=== PATIENT | female | born 1970 | race Caucasian/White ===

== ENCOUNTER 2018-07-16 09:50 | Inpatient (IN) ==
--- NOTE | 2018-07-16 10:11 | Emergency Department Note ---
Disposition Clinical Impression: NSTEMI (non-ST elevated myocardial infarction) Disposition: Admitted As Inpatient Condition: Good General Adult HPI - General Chief complaint: ED Chest Pain Stated complaint: CP Time Seen by Provider: 07/16/18 09:59 Source: EMS Limitations: no limitations - History of Present Illness Pain Scale: 1 - Related Data Home Medications Medication Instructions Recorded Confirmed Aspirin Enteric Coated [Aspirin EC] 81 mg PO DAILY 05/30/15 07/16/18 Carvedilol [Coreg] 6.25 mg PO BID 06/09/16 07/16/18 Rosuvastatin [Crestor] 40 mg PO HS 06/09/16 07/16/18 Cyanocobalamin (Vitamin B-12) 1,000 mcg PO DAILY 11/21/17 07/16/18 [Vitamin B12] Esomeprazole Magnesium [Nexium] 20 mg PO DAILY 11/21/17 07/16/18 Lisinopril [Zestril] 10 mg PO DAILY 11/21/17 07/16/18 Nitroglycerin [Nitrostat] 0.4 mg SL Q5-6MIN PRN 11/21/17 07/16/18 Cholecalciferol (D-3) [Vitamin D] 5,000 unit PO DAILY 07/16/18 07/16/18 Clopidogrel [Plavix] 75 mg PO DAILY 07/16/18 07/16/18 Spironolactone [Aldactone] 25 mg PO DAILY 07/16/18 07/16/18 Previous Rx's Medication Instructions Recorded Furosemide [Lasix] 40 mg PO DAILY #10 tablet 10/19/17 Allergies Allergy/AdvReac Type Severity Reaction Status Date / Time No Known Allergies Allergy Verified 07/16/18 14:53 Past Medical History - Past Medical History Medical history: Reports: cardiomyopathy, GERD, hyperlipidemia, hypertension, myocardial infarction Surgical history: Reports: non-contributory, cholecystectomy Psychiatric history: Reports: no psych history - Social History Smoking Status: Current every day smoker Smokeless Tobacco Status: No Alcohol use: Reports: none Drug use: Reports: none Physical Exam - General Limitations: no limitations General appearance: alert, in no apparent distress Course Vital Signs Temperature 97.7 F 07/16/18 09:52 Pulse Rate 75 07/16/18 09:52 Respiratory Rate 18 07/16/18 09:52 Blood Pressure 153/98 07/16/18 09:52 O2 Sat by Pulse Oximetry 100 07/16/18 09:52 Temperature 97.7 F 07/16/18 09:52 Pulse Rate 79 07/16/18 11:40 Respiratory Rate 18 07/16/18 11:40 Blood Pressure 119/84 07/16/18 11:40 O2 Sat by Pulse Oximetry 100 07/16/18 11:40 Oxygen Delivery Oxygen Delivery Room Air Medical Decision Making - Lab Data Result diagrams: 07/16/18 10:37 Lab Results 07/16/18 07/16/18 Range/Units 10:37 10:37 WBC 8.0 (4.3-11.1) K/mcL RBC 4.79 (3.82-4.97) M/mcL Hgb 13.7 (11.5-15.4) g/dL Hct 41.2 (35.3-44.9) % MCV 86.0 (83.0-100.0) fL MCH 28.6 (28.0-33.3) pg MCHC 33.3 (31.6-35.5) g/dL RDW 13.3 (11.5-14.5) % Plt Count 243 (140-400) K/mcL MPV 11.0 (9.4-12.4) fL PT 11.3 (9.4-12.1) Seconds INR 1.0 Heparin Anti-Xa, Unfract 0.03 L (0.30-0.70) IU/mL Attestation Statement - Attestation Attestation: I examined this patient and my medical decision-making was reviewed with the [employer]/PA/Advanced Practice Nurse/Resident Physician. I agree with the documented findings, disposition and treatment plan as described except to the extent set forth below. I did see the patient upon arrival and also spoke with the EMS and the patient was transported here with elevated troponin and EKG changes. I did review the pre-arrival EKG showing a new lateral T-wave inversion as well as our EKG here showing normal sinus rhythm with rate of 76 and with evidence of lateral T-wave inversion and some minimal ST depression downsloping and the patient does have a 1/10 soreness under the left breast at this time but otherwise does not have any diaphoresis or dyspnea and is bright and alert and well in appearance. We will coordinate care with cardiology and the patient will be admitted. 1010 I did speak the patient just before transportation and did explain her test results and the plan and she is comfortable with the disposition approach for admission and cardiology consultation. Her is in the room also [id number]
[2018-07-16] MEDS ORDERED: *HR* Heparin 5,000 UNIT/ML VIAL IVP ONE (10:18)
[2018-07-16] MEDS ORDERED: *HR* Heparin 5,000 UNIT/ML VIAL IVP PRN ×2 (10:18)
--- NOTE | 2018-07-16 10:28 | Emergency Department Note ---
Disposition Clinical Impression: NSTEMI (non-ST elevated myocardial infarction) Disposition: Admitted As Inpatient Condition: Good Referrals: Tao Iqbal MD [Primary Care Provider] - Forms: ED Satisfaction Letter Time of Disposition: 10:32 General Adult HPI - General Stated complaint: CP Time Seen by Provider: 07/16/18 09:59 Source: patient, EMS Mode of arrival: EMS Limitations: no limitations Nursing Notes Reviewed: Yes Vital Signs Reviewed: Yes - History of Present Illness HPI Narrative: Patient is a 47-year-old female that presents emergency department via transfer from [facility] via EMS. Patient was seen at outside facility for chest pain. Patient states that over the past few days she has been having worsening of her chest pain. States that is been more of a heaviness and pain in the center of her chest with some associated shortness of breath. Patient denies any nausea or diaphoresis. Patient states that she has had to take 5 nitroglycerin over the past few days. Patient was seen at the outside hospital and was found to have an elevated troponin of 0.20. Patient has no other symptoms at this time. Patient denies any radiation of pain to her shoulders or back, neck or face. Patient states this feels similar to when she has had a previous [facility]. Pain Scale: 1 - Related Data Home Medications Medication Instructions Recorded Confirmed Aspirin Enteric Coated [Aspirin EC] 81 mg PO DAILY 05/30/15 07/16/18 Clopidogrel [Plavix] 75 mg PO DAILY 05/30/15 07/16/18 Carvedilol [Coreg] 6.25 mg PO BID 06/09/16 07/16/18 Rosuvastatin [Crestor] 40 mg PO HS 06/09/16 07/16/18 Cholecalciferol (Vitamin D3) 5,000 unit PO DAILY 11/21/17 07/16/18 [Vitamin D3] Cyanocobalamin (Vitamin B-12) 1,000 mcg PO DAILY 11/21/17 07/16/18 [Vitamin B12] Esomeprazole Magnesium [Nexium] 20 mg PO DAILY 11/21/17 07/16/18 Lisinopril [Zestril] 10 mg PO DAILY 11/21/17 07/16/18 Nitroglycerin [Nitrostat] 0.4 mg SL Q5-6MIN PRN 11/21/17 07/16/18 Spironolactone [Aldactone] 12.5 mg PO DAILY 07/16/18 07/16/18 Previous Rx's Medication Instructions Recorded Furosemide [Lasix] 40 mg PO DAILY #10 tablet 10/19/17 Allergies Allergy/AdvReac Type Severity Reaction Status Date / Time No Known Allergies Allergy Verified 07/16/18 07:45 All systems ED: reviewed and negative except as stated. Cardiovascular: Reports: chest pain Respiratory: Denies: dyspnea Gastrointestinal: Denies: abdominal pain, nausea, vomiting Past Medical History - Past Medical History Medical history: Reports: cardiomyopathy, GERD, hyperlipidemia, hypertension, myocardial infarction Surgical history: Reports: non-contributory, cholecystectomy Psychiatric history: Reports: no psych history - Social History Smoking Status: Current every day smoker Smokeless Tobacco Status: No Alcohol use: Reports: none Drug use: Reports: none Physical Exam - General Limitations: no limitations General appearance: alert, in no apparent distress - Head Head exam: atraumatic, normocephalic - Eye Eye exam: Present: normal appearance, EOMI - Neck Neck exam: Present: normal inspection, full ROM, trachea midline - Respiratory Respiratory exam: Present: normal lung sounds bilaterally. Absent: respiratory distress, wheezes - Cardiovascular Cardiovascular exam: Present: regular rate, normal rhythm, normal heart sounds, +S1, +S2 - Abdominal Exam Abdominal exam: Present: soft, Non-Tender, normal bowel sounds - Neurological Exam Neurological exam: Present: alert, oriented X3 - Psychiatric Psychiatric exam: Present: normal affect, normal mood - Skin Skin exam: Present: warm, dry, intact Course Vital Signs Temperature 97.7 F 07/16/18 09:52 Pulse Rate 75 07/16/18 09:52 Respiratory Rate 18 07/16/18 09:52 Blood Pressure 153/98 07/16/18 09:52 O2 Sat by Pulse Oximetry 100 07/16/18 09:52 Temperature 97.7 F 07/16/18 09:52 Pulse Rate 75 07/16/18 09:52 Respiratory Rate 18 07/16/18 09:52 Blood Pressure 153/98 07/16/18 09:52 O2 Sat by Pulse Oximetry 100 07/16/18 09:52 Oxygen Delivery Oxygen Delivery Room Air Medical Decision Making - MDM Narrative Medical decision making narrative: Due the patient presenting to an outside facility with chest pain the patient was worked up with laboratory testing and an EKG. Was found have an elevated troponin at the outside hospital. Patient's troponin was 0.20. Patient's EKG from the outside hospital was reviewed by myself and the attending which showed some mild T-wave inversions in leads V4, V5 and V6. Repeat EKG was obtained here in our emergency department which showed some mild depressions in V5 and V6. Patient's chest pain has improved. She says as a 1 out of 10. I called and spoke with the on-call director of [facility] who said that they are aware of this patient and to admitted to the medical service. They recommended starting IV heparin on this patient. IV heparin has been ordered and the patient will be admitted to medicine with a cardiology consult. I called and spoke with the admitting hospitals Dr. Artis and he is except the patient to their service. Patient be admitted to the hospital this time for further evaluation and management. - Medical Records Medical records reviewed: Yes I reviewed the patient's medical records. - Lab Data Lab results reviewed: Yes I reviewed the patient's lab results. Result diagrams: 07/16/18 10:37 Lab Results 07/16/18 07/16/18 Range/Units 10:37 10:37 WBC 8.0 (4.3-11.1) K/mcL RBC 4.79 (3.82-4.97) M/mcL Hgb 13.7 (11.5-15.4) g/dL Hct 41.2 (35.3-44.9) % MCV 86.0 (83.0-100.0) fL MCH 28.6 (28.0-33.3) pg MCHC 33.3 (31.6-35.5) g/dL RDW 13.3 (11.5-14.5) % Plt Count 243 (140-400) K/mcL MPV 11.0 (9.4-12.4) fL PT 11.3 (9.4-12.1) Seconds INR 1.0 Heparin Anti-Xa, Unfract 0.03 L (0.30-0.70) IU/mL - Radiology Data Radiology results reviewed: Yes I reviewed the patient's radiology results. - EKG Data EKG #1 EKG attestation: Yes I reviewed and interpreted this EKG. EKG results narrative: EKG shows a sinus rhythm and rate of 76 bpm, [place] interval of 170, QRS duration of 103, QTC of 455 with a normal axis. No evidence of STEMI on EKG. There is some mild depressions in V5 and V6. This is compared to previous EKG which showed mild depression in V6.
[2018-07-16] MEDS ORDERED: Heparin 25,000 UNIT/500 ML D5W 25,000 UNIT/500 ML BAG IVC SCH (10:30)
[2018-07-16 10:46] LABS: Hematocrit 41.2 % (35.3-44.9); Hemoglobin 13.7 g/dL (11.5-15.4); Mean Corpuscular HGB Conc 33.3 g/dL (31.6-35.5); Mean Corpuscular Hemoglobin 28.6 pg (28.0-33.3); Platelet Count 243 K/mcL (140-400); Red Blood Count 4.79 M/mcL (3.82-4.97); Red Cell Distribution Width 13.3 % (11.5-14.5)
[2018-07-16 10:52] LABS: Heparin anti-factor XA UFH 0.03 IU/mL (0.30-0.70); Prothrombin Time 11.3 Seconds (9.4-12.1)
--- NOTE | 2018-07-16 14:28 | Cardiology Consult Note ---
<Juancho Herring R - Last Filed: 07/16/18 14:39> Date of Encounter: 07/16/18 Time of Encounter: 14:23 Assessment and Plan (1) NSTEMI (non-ST elevated myocardial infarction) Current Visit: Yes Status: Acute Initial troponin 0.20. Trend for total of 3. EKG ischemic changes. Intermittent chest pain since yesterday, relieved with rest and nitro. Has utilized nitro 5 times since yesterday. Symptoms similar to prior anginal equivalent. Known CAD. [facility] 10/2017 LM nl. LAD mid 70% stenosis (YIMI x2 placed). D1 90% stenosis. D2 40-50% stenosis. OM1 15% stenosis. RCA mid 40% stenosis. Known EF 39% on cardiac MRI 05/2018. 35% on TTE 02/2018 moderate global dysfunction. Recheck TTE. Given hx, symptoms and elevated troponin recommend [facility] tomorrow. R/B/A discussed. Pt continues to ask to go home. She is aware she cannot safely be discharged home and that if she leaves, it would have to be AMA. On heparin gtt. Continue ASA, Plavix, Statin, BB, ACEi. Will increase BB. Continue to follow. (2) CAD (coronary artery disease) Current Visit: No Status: Acute As above. Known CAD with most recent PCI 10/2017. Continue ASA, Plavix, Statin, BB. ACEi. Qualifiers: Coronary Disease-Associated Artery/Lesion type: [place] artery [place] vs. transplanted heart: [place] heart Associated angina: angina presence unspecified Qualified Code(s): I25.10 - Atherosclerotic heart disease of [place] coronary artery without angina pectoris (3) Cardiomyopathy Current Visit: No Status: Acute ICMP EF 39% on cardiac MRI 05/2018. Euvolemic on exam. Continue Lasix, Aldactone, ACEi, BB. Qualifiers: Cardiomyopathy type: ischemic Qualified Code(s): I25.5 - Ischemic cardiomyopathy Discussion w patient/family: The assessment and plan as outlined above was discussed with the patient and/or family members who expressed understanding and agreement. All questions were answered. Thank you for involving us in the care of your patient. Please call with any questions. I will discuss all the above with Dr. Smith and make changes as necessary. History of Present Illness Consult date: 07/16/18 Requesting physician: Miryam Rehman Consult reason: NSTEMI Chief complaint: chest pain History of present illness: Ms. Reno is a 47 year old female with a history of CAD, prior STEMI (04/2015) s/ p YIMI to LAD and ischemic CMP. After initial revascularization, LVEF improved from 35% to 45% per TTE 06/10/2016. In 2016, patient quit taking her medications for up to year. TTE in 10/2017 demonstrated reduced LVEF of 35%. LHC performed resulted in YIMI to LAD. Cardiac MRI 05/2018 LVEF of 39%. Pt states she has been more short of breath since April. She states that yesterday she developed right sided chest pressure while driving that radiated to the center of her chest. She went to cardiac rehab and continued to have chest pain on exertion. She rested and took nitro with relief of pain, but the chest pain has recurred and she has taken 5 nitro since yesterday. Most recent CP episode was this morning, relieved with nitro. Symptoms similar to prior anginal equivalent. Initial troponin 0.20. Cardiology consulted for further recs. Previous testing: Cardiac MRI, [facility] 06/25/2018: Subendocardial infarct scar involving the mid to distal septal benjamin that becomes near transmural (>50%) at the apex (anterior and septal apical benjamin). Edema/inflammation in the lateral wall based on T2 mapping. There is mild myocardial interstitial expansion based on post contrast ECV 30% (normal <29%). Dilated left ventricle (ESV 122 mL/mm2) with moderate segmental systolic dysfunction, calculated LVEF 39%. Mid to distal septal and apical wall is akinetic. Mild to moderate concentric LVH (max WT 1.4 cm). No apical thrombus noted. Normal RV size and systolic function, RV EF 67%. Normal biatrial size. No significant valvular dysfunction. Stress 05/21/18: Findings: Normal sinus rhythm, ST-T changes at rest. No baseline arrhythmias were noted. Stress ECG is non-diagnostic for ischemia due to baseline ST-T changes. No significant ST-T changes beyond baseline noted. No arrhythmias noted during exercise or recovery. Hypertensive at rest, which worsened with exercise.No chest pain during stress procedure.The exercise capacity was good - 10.1 METS. TTE 03/05/2018: LVEF 35%. Moderate global appearing LV systolic dysfunction. Mounds not well visualized. Moderately dilated left ventricle. Normal RV size and function. Trivial pericardial effusion. No tamponade. Limted TTE 10/28/2017: LVEF 35%. Severe LV enlargement. Elevated filling pressures. Normal RV size and function. Mild TR. No PHTN. Small periocardial effusion, no tamponade. [facility] 11/21/2017: LM nl. LAD mid 70% stenosis (YIMI x2 placed). D1 90% stenosis. D2 40-50% stenosis. OM1 15% stenosis. RCA mid 40% stenosis. EF 35-40%. TTE 05/01/2015: EF 35%. LAD distribution wall motion abnormalities. Past Med Surg Social Fam HX - Past Medical History Medical history: cardiomyopathy, GERD, hyperlipidemia, hypertension, myocardial infarction Additional medical history: stent Psychiatric history: no psych history - Past Surgical History Surgical History: non-contributory, cholecystectomy Additional surgical history: Stent placement (2017) - Social History Smoking Status: Current every day smoker Smokeless Tobacco Status: No Alcohol use: none Drug use: none - Family History Mother Hx Family Endocrine Disorder: Yes Medications and Allergies Aspirin Enteric Coated [Aspirin EC] 81 mg PO DAILY 05/30/15 [History] Carvedilol [Coreg] 6.25 mg PO BID 06/09/16 [History] Rosuvastatin [Crestor] 40 mg PO HS 06/09/16 [History] Furosemide [Lasix] 40 mg PO DAILY #10 tablet 10/19/17 [Rx] Cyanocobalamin (Vitamin B-12) [Vitamin B12] 1,000 mcg PO DAILY 11/21/17 [History ] Esomeprazole Magnesium [Nexium] 20 mg PO DAILY 11/21/17 [History] Lisinopril [Zestril] 10 mg PO DAILY 11/21/17 [History] Nitroglycerin [Nitrostat] 0.4 mg SL Q5-6MIN PRN 11/21/17 [History] Cholecalciferol (D-3) [Vitamin D] 5,000 unit PO DAILY 07/16/18 [History] Clopidogrel [Plavix] 75 mg PO DAILY 07/16/18 [History] Spironolactone [Aldactone] 25 mg PO DAILY 07/16/18 [History] 3 Allergy/AdvReac Type Severity Reaction Status Date / Time No Known Allergies Allergy Verified 07/16/18 14:53 All Systems Review: The remainder of the systems were reviewed and are negative - Cardiovascular Cardiovascular: as per HPI, chest pain at rest, chest pain with exertion, dyspnea at rest, dyspnea on exertion - Respiratory Respiratory: dyspnea Physical Examination Vital Signs Temp Pulse Resp BP Pulse Ox 07/16/18 11:40 79 18 119/84 100 07/16/18 09:52 97.7 F 75 18 153/98 100 Intake and Output 07/15/18 07/16/18 07/16/18 23:59 07:59 15:59 Other: Weight 81.647 kg Patient Weight 07/16/18 23:59 Weight 81.647 kg General: Conversant, No Apparent Distress HEENT: Atraumatic, Normocephaly, Mucus Membranes Moist Neck: No JVD, Normal carotid pulses Cardiac: Reg Rate and Rhythm, Normal S1 and S2, No Murmur Lungs: Normal Breath Sounds, No Wheeze, Rales, Rhonchi Neuro: Alert and responsive, No focal deficits noted Abdomen: Soft, Non-Tender Skin: No rashes noted on visualized skin Musculoskeletal: No Chest Wall Tenderness Extremities: No Clubbing, No Cyanosis, No Edema, Normal Pulses Results 07/16/18 10:37 Short CBC 07/16/18 Range/Units 10:37 WBC 8.0 (4.3-11.1) K/mcL Hgb 13.7 (11.5-15.4) g/dL Hct 41.2 (35.3-44.9) % Plt Count 243 (140-400) K/mcL Active Medications Heparin Sodium (Porcine) (Heparin) 4,000 unit IVP Q6HR PRN PRN Reason: SEE COMMENTS Stop: 01/15/19 10:19 Heparin Sodium (Porcine) (Heparin) 2,000 unit IVP Q6H PRN PRN Reason: SEE COMMENTS Stop: 01/15/19 10:19 Heparin Sodium/Dextrose (Heparin 25,000 Unit/500 Ml D5w) 25,000 unit in 500 mls @ 19.595 mls/hr IVC .Q24H TABITHA; 12 UNIT/KG/HR PRN Reason: Protocol Stop: 01/15/19 10:31 Last Admin: 07/16/18 11:41 Dose: 12 unit/kg/hr, 19.595 mls/hr - Imaging and Cardiology Stress Test: report reviewed Echo: report reviewed Cardiac cath: report reviewed - EKG Interpretation EKG results cardiology: personally reviewed (SR, ischemic changes) Consult Discharge Plan - Plan Referrals: Tao Iqbal MD [Primary Care Provider] - <Rainer Smith A - Last Filed: 07/16/18 16:43> Date of Encounter: 07/16/18 - Attending Attestation I have personally performed a face to face evaluation on this patient. I have reviewed and agree with the care plan. History and Exam by me shows: 47 y/o F with hx of CAD presenting with typical angina and NSTEMI. For cardiac cath tomorrow. Assessment and Plan Discussion w patient/family: The assessment and plan as outlined above was discussed with the patient and/or family members who expressed understanding and agreement. All questions were answered. Thank you for involving us in the care of your patient. Please call with any questions. History of Present Illness History of present illness: Ms. Reno is a 47 year old female All Systems Review: The remainder of the systems were reviewed and are negative Physical Examination Vital Signs, Last 4 Hours Temp Pulse Resp BP Pulse Ox 07/16/18 15:20 98 F 75 16 136/92 98 Results 07/16/18 10:37 Lab Results 07/16/18 15:27 Troponin I 0.29 H*
[2018-07-16] MEDS ORDERED: Nitroglycerin 0.4 MG TAB.SUBL SL PRN (14:51)
[2018-07-16] MEDS: Aspirin Enteric Coated 81 MG Tablet PO SCH (15:16)
[2018-07-16] MEDS: Spironolactone 25 MG TABLET PO SCH (15:16)
--- NOTE | 2018-07-16 15:16 | Internal Med History&Physical ---
Date of Encounter: 07/16/18 Time of Encounter: 15:13 Internal Medicine - H&P: HPI Chief complaint: Chest pain Admitted From: Emergency Dept Plans for Post Hospital Care: Home History of present illness: Ms. Reno is a 47 year old female patient with history of coronary artery disease and prior PCI with stents who presented to the ER with complaints of chest pain. She had an episode of chest pain last night and she took nitroglycerin which seemed to improve her pain. The patient was mainly located on the right side of the chest and radiating across the chest. However the pain returned at around 3 AM this morning and so she decided to come to go to the ER. Patient was initially seen at the [facility] and her troponins were elevated there so she was sent over here. By the time she came here her chest pain had completely resolved. She denies any shortness of breath or palpitations at this time. She had a coronary stent placed couple of years back and then had another stent placed in November of this year. She is on aspirin and Plavix and is compliant with her medications. She does continue to smoke. She states that she had a cardiac MRI done recently which showed that she had an ejection fraction of 39% and did not require AICD. Past Med Surg Social Fam HX - Past Medical History Attestation: Yes The following information was validated with the patient. Source: patient Medical history: cardiomyopathy, GERD, hyperlipidemia, hypertension, myocardial infarction Additional medical history: 2014- stent Psychiatric history: no psych history - Past Surgical History Surgical History: non-contributory, cholecystectomy Additional surgical history: Stent placement (2017) - Social History Smoking Status: Current every day smoker Smokeless Tobacco Status: No Alcohol use: none Drug use: none - Family History Mother Hx Family Endocrine Disorder: Yes Internal Medicine - H&P: Meds Aspirin Enteric Coated [Aspirin EC] 81 mg PO DAILY 05/30/15 [History] Carvedilol [Coreg] 6.25 mg PO BID 06/09/16 [History] Rosuvastatin [Crestor] 40 mg PO HS 06/09/16 [History] Furosemide [Lasix] 40 mg PO DAILY #10 tablet 10/19/17 [Rx] Cyanocobalamin (Vitamin B-12) [Vitamin B12] 1,000 mcg PO DAILY 11/21/17 [History ] Esomeprazole Magnesium [Nexium] 20 mg PO DAILY 11/21/17 [History] Lisinopril [Zestril] 10 mg PO DAILY 11/21/17 [History] Nitroglycerin [Nitrostat] 0.4 mg SL Q5-6MIN PRN 11/21/17 [History] Cholecalciferol (D-3) [Vitamin D] 5,000 unit PO DAILY 07/16/18 [History] Clopidogrel [Plavix] 75 mg PO DAILY 07/16/18 [History] Spironolactone [Aldactone] 25 mg PO DAILY 07/16/18 [History] 3 Allergy/AdvReac Type Severity Reaction Status Date / Time No Known Allergies Allergy Verified 07/16/18 14:53 All Systems PM: A 10-system review of systems was performed and is negative for pertinent findings except as documented above in the HPI. - Constitutional Constitutional: no chills, no fever(s), no night sweats - EENT Eyes: no change in vision, no discharge, no pain, no photophobia Ears: no ear discharge, no ear pain, no tinnitus Nose, mouth and throat: no dysphagia, no nasal discharge, no neck pain, no sore throat - Cardiovascular Cardiovascular ROS IM: chest pain, no diaphoresis, no dyspnea, no lightheadedness, no palpitations, no syncope - Respiratory Respiratory: no cough, no dyspnea, no wheezing, no excessive phlegm production - Gastrointestinal Gastrointestinal: no abdominal pain, no diarrhea, no hematemesis, no hematochezia, no melena, no nausea, no vomiting - Genitourinary Genitourinary: no change in urinary stream, no dysuria, no flank pain, no hematuria - Musculoskeletal Musculoskeletal ROS IM: no numbness, no tingling - Integumentary Integumentary IM: no rash, no unusual bruising - Neurological Neurological ROS: no confusion, no convulsions, no focal weakness, no numbness, no tingling, no tremor(s) - Hematologic/Lymphatic Hematologic/Lymphatic: no easy bruising - Constitutional Vitals: Temp Pulse Resp BP Pulse Ox 97.7 F 79 18 119/84 100 07/16/18 09:52 07/16/18 11:40 07/16/18 11:40 07/16/18 11:40 07/16/18 11:40 General appearance: Present: cooperative, A&O X 3, no acute distress, answers questions appropriately Exam: . - Neck Neck exam general surgery: Present: supple, trachea midline. Absent: lymphadenopathy - Respiratory Respiratory exam: Present: CTAB. Absent: accessory muscle use, rales, rhonchi, wheezes - Cardiovascular Cardiovascular exam: Present: RRR, +S1, +S2. Absent: diastolic murmur, gallop, rubs, systolic murmur - GI/Abdominal GI/Abdominal exam: Present: normal bowel sounds, soft, no peritoneal signs. Absent: distended, tenderness - Extremities Exam Extremities exam: Present: warm, radial pulses palpable and symmetrical. Absent : calf tenderness, cyanotic, pedal edema - Neurological Exam Neurological exam: Present: CN II-XII intact, oriented X3, no focal deficits. Absent: facial droop, speech deficit - Skin Skin exam: Present: dry, intact Internal Med - H&P Results - Labs CBC & Chem 7: 07/16/18 10:37 - EKG Data -: EKG Interpreted by Myself - EKG Data Interpretation IM: suggestive of ischemia EKG comments: 07/16/18 15:21 Mild T-wave inversions in V4 , V5, V6 - Assessment and plan (1) NSTEMI (non-ST elevated myocardial infarction) Current Visit: Yes Status: Acute Assessment and plan: Patient with elevated troponin of 0.2 with recent chest pain. Concerning for non-ST elevation LA. She does have EKG changes concerning for ischemia. Started on IV heparin in the ER. Cardiology consulted. Plan for left heart catheterization tomorrow if patient is agreeable. Reviewing her records, she had left heart catheterization done in October of this year which showed 70% stenosis in mid LAD and she had 2 drug-eluting stents placed then. She had 90% stenosis in D1 and 40-50% stenosis and D2. She had 40% stenosis in mid RCA. She does have very high risk for repeat ACS. Monitor with telemetry. (2) Hypertension Current Visit: Yes Status: Chronic Assessment and plan: Blood pressure is well controlled at this time. Will resume home medications. Qualifiers: Hypertension type: essential hypertension Qualified Code(s): I10 - Essential (primary) hypertension (3) Cardiomyopathy Current Visit: Yes Status: Acute Assessment and plan: Patient with history of ischemic cardiomyopathy. Will continue home dose of Lasix, spironolactone and carvedilol. Qualifiers: Cardiomyopathy type: ischemic Qualified Code(s): I25.5 - Ischemic cardiomyopathy (4) CAD (coronary artery disease) Current Visit: Yes Status: Chronic Assessment and plan: Continue aspirin, Plavix, KEY inhibitor, beta arielle and statin. Qualifiers: Coronary Disease-Associated Artery/Lesion type: [place] artery [place] vs. transplanted heart: [place] heart Associated angina: angina presence unspecified Qualified Code(s): I25.10 - Atherosclerotic heart disease of [place] coronary artery without angina pectoris (5) Tobacco abuse Current Visit: Yes Status: Chronic Assessment and plan: Patient with history of tobacco abuse. She has been counseled about cessation. Will offer nicotine patch while she is here. - Time Spent With Patient Total time spent is greater than 50% in coordination of care (as documented) at patient's floor/unit and/or counseling patient:
[2018-07-16] MEDS: Furosemide 40 MG TABLET PO SCH (15:17)
[2018-07-16] MEDS ORDERED: Acetaminophen 325 MG TABLET PO PRN (16:36)
[2018-07-16] MEDS ORDERED: Naloxone 0.4 MG/ML INJ IVP PRN (16:36)
[2018-07-16] MEDS ORDERED: Perflutren Lipid Microsphere 1.3 ML in 0.9 % Sodium Chloride 8.7 ML IVP ONE (20:54)
[2018-07-17 01:40] LABS: BUN/Creatinine Ratio 17 (6-26); Blood Urea Nitrogen 14 mg/dL (6-20); Calcium 8.2 mg/dL (8.6-10.3); Carbon Dioxide 23 mEq/L (23-29); Chloride 109 mEq/L (98-107); Chol/HDL Ratio 3.3 (0-4.9); Cholesterol 95 mg/dL (< 200); Glucose 120 mg/dL (70-105); HDL Cholesterol 29 mg/dL (40-59); LDL Cholesterol,Calculated 14 mg/dL (0-99); Osmolality,Calculated 282 (280-300); Potassium 3.4 mEq/L (3.5-5.1); Sodium 135 mEq/L (136-145); Triglycerides 260 mg/dL (< 150); eGFR For Non-African Americans > 60 (> 60)
[2018-07-17 07:23] LABS: Estimated Average Glucose 131 mg/dl; Hemoglobin A1C 6.2 %
[2018-07-17] MEDS: Cholecalciferol (D-3) 1,000 UNIT TABLET PO SCH (08:20)
[2018-07-17] MEDS: Aspirin Enteric Coated 81 MG Tablet PO SCH (08:20)
[2018-07-17] MEDS: Spironolactone 25 MG TABLET PO SCH (08:20)
[2018-07-17] MEDS: Furosemide 40 MG TABLET PO SCH ×2 (08:21→16:05)
[2018-07-17] MEDS: Cyanocobalamin (B-12) 1,000 MCG TABLET PO SCH (08:21)
[2018-07-17] MEDS: Nicotine 21 MG PATCH.TD24 TD SCH (08:21)
[2018-07-17] MEDS ORDERED: Heparin 1,000 UNITS/500 mL 500 ML ONE (10:41)
[2018-07-17] MEDS ORDERED: *HR* Heparin 10,000 UNIT/10 ML VIAL ONE (10:41)
[2018-07-17] MEDS ORDERED: 0.9 % Sodium Chloride 1,000 ML ONE (10:41)
[2018-07-17] MEDS ORDERED: Nitroglycerin 1,000 MCG/10 ML VIAL IV ONE (10:42)
[2018-07-17] MEDS ORDERED: ISOVUE-370 200 ML INFUS..BTL IV ONE (10:42)
[2018-07-17] MEDS ORDERED: *HR* FentaNYL (PF) 100 MCG/2 ML VIAL ONE ×2 (11:05→12:07)
[2018-07-17] MEDS ORDERED: *HR* Midazolam HCl 2 MG/2 ML VIAL ONE ×2 (11:05→12:09)
--- NOTE | 2018-07-17 11:11 | Pre-Sedation Evaluation ---
Pre-sedation evaluation - Pre-sedation checklist Date of procedure: 07/17/18 Procedure: left Heart Cath Recent Vitals: Last Vital Signs Temp 97.7 F 07/17/18 07:32 Pulse 75 07/17/18 07:32 Resp 16 07/17/18 07:32 BP 155/91 07/17/18 07:32 Pulse Ox 97 07/17/18 07:32 H&P (including ROS) documented in medical record: Yes Previous reaction to sedatives/anesthetics: No Dietary Status: NPO after Midnight Dentition: No loose teeth or bridges ASA Classification *see protocol: CLASS II-Mild systemic disease Cardiac Registry (Cardio Only) - Functional Capacity Functional Capacity: >=4 METS with symptoms - Clincal Frailty Scale Clinical Frailty Scale: Managing Well
[2018-07-17] MEDS ORDERED: Tirofiban 12.5 MG/250ML 12.5 MG/250 ML BAG ONE (11:32)
[2018-07-17] MEDS ORDERED: *HR* Ticagrelor 90 MG TABLET ONE (12:14)
[2018-07-17] MEDS ORDERED: Tirofiban 12.5 MG/250ML 12.5 MG/250 ML BAG IVC SCH (12:30)
--- NOTE | 2018-07-17 12:43 | Invasive Diagnostic Lab Proc ---
Name: Danelle Reno Date of Study: 07/17/2018 Date: 1970 Ht: 65.0in Medical Record#: [id number] Age: 47 Wt: 192.90lb Gender: Female BSA: 1.95 Order #: [id number] BMI: 32.1 Physicians Procedure Physician: Leonides Whitehead MD Referring MD: Referring MD: Staff Name Position Time In Reji Shaffer RN Client Services Director 11:02 AM Veronica Cordova RN Monitor 11:02 AM Elisabeth Rodriguez RN Nurse 11:02 AM Mina Swift RT (R) Scrub 11:02 AM Indications Indication Non-Stemi Procedures Performed Procedure L HRT ARTERY/VENTRICLE ANGIO PRQ CARD YIMI STENT W/ANGIO 1 VSL IV Doppler BLD Flow 1st Vessel Pre-Procedure Checklist Informed consent is complete signed and on chart. H&P is on chart. ID band is on and ID verified with patient. Patient NPO for procedure The procedure was described for the patient and questions were answered. Blood Pressure: 155/91 ECG is on chart. Rhythm: NSR Plan of Care Patient will tolerate the procedure without complications. Adequate level of comfort will be maintained. Hemodynamics will remain stable Patient will recover from procedure without complications. Respiratory function will be maintained. Cardiac rhythm will remain stable. Patient temperature will be maintained. Patient and/or family have verbalized understanding of the procedure. Patient Education Chief Complaint/Reason for Test: Cardiac Cath Developmental Category: Adult (18-64 years) Developmentally Appropriate for Age: Yes Learning Barriers: None Education Needs: Procedure Education Method: Verbal Information Taught: Cardiac Cath Educational Evaluation: Able to repeat information Intravenous Access Time IV Size Location DC'd Fluid/Drip Rate Units RN 10:15 AM 20g 1 1/" Patent On Arrival Rt Antecubital 0.9NaCl 25 ml/hr Reji Shaffer RN Allergies No Known Allergies Vital Signs Time BP (mmHg) HR (bpm) O2 Sat. RR (bpm) LOC 10:16 AM 155 / 91 75 97 % 16 5 = Fully awake and oriented or at pre-proc level 11:02 AM / % 5 = Fully awake and oriented or at pre-proc level 11:02 AM / % 4 = Oriented but drowsy 11:18 AM / % 5 = Fully awake and oriented or at pre-proc level 11:33 AM / % 4 = Oriented but drowsy 11:48 AM / % 4 = Oriented but drowsy 12:03 PM / % 4 = Oriented but drowsy 11:04 AM 128 / 81 90 100 % 17 11:10 AM 147 / 90 76 100 % 27 11:14 AM 145 / 94 72 100 % 17 11:19 AM 137 / 91 65 100 % 33 11:24 AM 139 / 81 78 100 % 14 11:30 AM 119 / 74 83 100 % 16 11:34 AM 130 / 71 79 100 % 18 11:39 AM 125 / 81 81 100 % 27 11:43 AM 119 / 80 83 100 % 12 11:44 AM 110 / 73 90 100 % 15 11:50 AM 128 / 79 78 98 % 19 11:54 AM 139 / 89 81 100 % 20 12:00 PM 126 / 79 80 96 % 21 12:04 PM 124 / 78 79 99 % 14 12:11 PM 150 / 97 77 100 % 13 Procedural Medications Time Medication Dose Units Method Given By 11:03 AM Oxygen 2 L/min nasal cannula Reji Shaffer RN 11:09 AM Versed 1 mg Intravenous Reji Shaffer RN 11:09 AM Fentanyl 50 mcg Intravenous Reji Shaffer RN 11:14 AM Versed 1 mg Intravenous Reji Shaffer RN 11:14 AM Fentanyl 50 mcg Intravenous Reji Shaffer RN 11:19 AM Lidocaine 2% 20 ml Subcutaneous Leonides Whitehead MD 11:34 AM Heparin 4500 units Intravenous Reji Shaffer RN 11:38 AM Adenosine 739 ml/hr Intravenous Reji Shaffer RN 11:56 AM Nitroglycerin 100 mcg Intracoronary Lu Whitehead MD 11:59 AM Nitroglycerin 200 mcg Intracoronary Lu Whitehead MD 12:06 PM Fentanyl 50 mcg Intravenous Reji Shaffer RN 12:09 PM Versed 1 mg Intravenous Reji Shaffer RN 12:09 PM Brilinta 180 mg Orally Reji Shfafer RN 12:09 PM Lidocaine 2% 10 ml Subcutaneous Leonides Whitehead MD ASA Classification: CLASS II- Mild systemic disease (i.e. well-controlled diabetes, hypertension, asthma, cigarette smoking) Loli Score Preprocedure Postprocedure Activity 2- Moves 4 extremities sustained head lift Activity Circulation 2- SBP +/= 20 points of pre-anesthetic level Circulation Consciousness 2- Awake and alert oriented x 3 Consciousness O2 Saturation 2- Able to maintain O2 satruation of 92% on room air O2 Saturation Respiratory 2- Able to deep breathe and cough well Respiratory Total Score 10 Total Score Contrast Agent: Isovue Diagnostic Contrast: 127 ml Total Contrast: 127 ml Fluoro Dose: 25761 mGy Activated Clotting Time Time Seconds to Clot 11:33 AM 157 11:52 AM 274 Procedure Log Time Note Enter By 11:02 AM Pt arrived to lab pack chemist 2 at 11: [facility] : AM Reji Shaffer RN Position: Client Services Director Time in: : [facility] : AM Veronica Cordova RN Position: Monitor Time in: : [facility] : AM Elisabeth Rodriugez RN Position: Nurse Time in: : [facility] : AM Mina Swift RT (R) Position: Scrub Time in: : [facility] 11:02 AM Patient charges- Angio tray pack, Navilyst 3mm J, Pulse Oximetry and ACIST tubing and transducer [facility] : AM Hair removed from procedure site in procedure lab using clippers. Bilateral groin prepped with Chloraprep by Elisabeth Rodriguez RN, then patient was draped. Skin intact. [facility] : AM Physician arrived : [facility] : AM Ernst completed [facility] : AM Sign in performed according to hospital policy. [facility] : AM Procedure start : [facility] : AM Time: : Patient comfortable and pain free: Yes [facility] : AM Time: :LOC: 5 = Fully awake and oriented or at pre-proc level [facility] : AM Time: 11: Oxygen on at 2 L/min per nasal cannula by Reji Shaffer RN [facility] : AM CathStat 11:04 AM Vitals capture started with the following parameters, Patient=Adult, Interval=5 min, Initial Zdstvydw=467 mmHg, Deflation Rate=5 mmHg, Cuff placed on Right Arm 11:04 AM HR=90 bpm, QWWB=638/81 mmhg, JfP7=403.0 %, Resp=17 B/min, Comment=nsr : AM Time: : Versed 1 mg Intravenous Given by Reji Shaffer RN [email or web address] 11: AM Time: 11: Fentanyl 50 mcg Intravenous Given by Reji Shaffer RN [email or web address] 11:10 AM HR=76 bpm, GQBT=432/90 mmhg, XzX3=730.0 %, Resp=27 B/min, Comment=nsr 11:12 AM Clinical Presentation: Non-STEMI scoates 11:12 AM Pressure channel 1 zeroed. 11:13 AM Case Delayed no, inpatient scoates 11: AM Time: 11: Versed 1 mg Intravenous Given by Reji Shaffer [email or web address] 11: AM Time: 11: Fentanyl 50 mcg Intravenous Given by Reji Shaffer [email or web address] 11:14 AM HR=72 bpm, ZODW=820/94 mmhg, HrM9=510.0 %, Resp=17 B/min, EtCO2=34 mmHg, Comment=nsr 11:18 AM Time: 11:02LOC: 4 = Oriented but drowsy scoates 11:18 AM Time: 11:02 Patient comfortable and pain free: Yes scoates 11:18 AM Time: :18 20 ml Lidocaine 2% to right groin Subcutaneous Given by Leonides Whitehead MD scoates 11:19 AM Micro-Introducer Kit utilized for sheath placement scoates 11:19 AM Access obtained by percutaneous puncture. 6Fr 11cm Terumo [place] sheath placed in right Femoral artery. [id number] scoates 11:19 AM HR=65 bpm, BSPG=922/91 mmhg, LbU5=710.0 %, Resp=33 B/min, EtCO2=38 mmHg, Comment=nsr 11:20 AM 5Fr FR 4 catheter inserted over the wire DNC scoates 11:21 AM Recorded Pressure: Ao, HR=71, Condition=Condition 1 (Aorta) Ao 135/83/105 11:21 AM RCA angiography performed in multiple views. scoates 11:22 AM Catheter removed scoates 11:22 AM 5Fr FL 4 catheter inserted over the wire DNC scoates 11:23 AM Recorded Pressure: Ao, HR=75, Condition=Condition 1 (Aorta) Ao 140/83/104 11:23 AM Recorded Pressure: Ao, HR=83, Condition=Condition 1 (Aorta) Ao 106/64/82 11:24 AM LCA angiography performed in multiple views. scoates 11:24 AM HR=78 bpm, DXHJ=960/81 mmhg, EzY8=849.0 %, Resp=14 B/min, Comment=nsr 11:26 AM Recorded Pressure: LV, HR=90, Condition=Condition 1 (Left Ventricle) LV 123/31/38 11:27 AM Recorded Pressure: LV, Ao, HR=90, Condition=Condition 1 (Left Ventricle) LV 122/28/34, (Aorta) Ao 122/82/101 11:28 AM Catheter removed scoates 11:28 AM 5Fr Pigtail catheter inserted over the wire DNC scoates 11:28 AM Catheter selectively placed in left ventricle scoates 11:28 AM pressures obtained scoates 11:28 AM Catheter removed scoates 11:30 AM HR=83 bpm, MFGE=929/74 mmhg, YtO4=860.0 %, Resp=16 B/min, Comment=nsr 11:32 AM Coronary Dominance: right scoates 11:33 AM At 11:33 the ACT was 157 seconds. scoates 11:33 AM Time: 11:18LOC: 5 = Fully awake and oriented or at pre-proc level scoates 11:33 AM Time: 11:18 Patient comfortable and pain free: Yes scoates 11:34 AM Time: 11:34 Heparin 4500 units Intravenous Given by Reji Shaffer RN scoates 11:34 AM Inflation device was opened. scoates 11:34 AM HR=79 bpm, DTDK=656/71 mmhg, EhC0=036.0 %, Resp=18 B/min, EtCO2=39 mmHg, Comment=nsr 11:35 AM 6Fr JR4 Boomer Bright-Tip guide catheter was used to cannulate the PCI vessel successfully. reused? No scoates 11:37 AM Recorded Pressure: Ao, HR=75, Condition=Condition 1 (Aorta) Ao 122/76/95 11:37 AM .014 [employer] [place] 190cm guide wire across target lesion- successful. reused? No scoates 11:39 AM HR=81 bpm, XFNB=784/81 mmhg, VfE7=996.0 %, Resp=27 B/min, EtCO2=39 mmHg, Comment=nsr 11:40 AM Asist FFR Catheter advanced to target lesion. scoates 11:43 AM NIBP STAT measurement started. 11:43 AM Time: 11:38 Adenosine 739 ml/hr Intravenous Given by Reji Shaffer RN scoates 11:43 AM Recorded Pressure: Ao, HR=82, Condition=Condition 1 (Aorta) Ao 114/83/98 11:43 AM HR=83 bpm, WGZE=559/80 mmhg, XiR2=178.0 %, Resp=12 B/min, Comment=nsr 11:44 AM Flow Wire/Catheter removed intact scoates 11:44 AM FFR Measurement: 0.77 Mid RCA scoates 11:44 AM Recorded Pressure: Ao, RV, HR=82, Condition=Condition 1 (Aorta) Ao 119/87/103, (Right Ventricle) RV 120/73/78 11:44 AM HR=90 bpm, SSCK=895/73 mmhg, DdD9=945.0 %, Resp=15 B/min, Comment=nsr 11:45 AM Lesion found in Mid RCA. Pre Stenosis: 70 Pre NICCI Flow: 3: Complete and Brisk Flow/Perfusion scoates 11:45 AM Lesion found in Mid LAD. Pre Stenosis: 100 Pre NICCI Flow: 0: No Flow/No perfusion scoates 11:47 AM 2.0 mm x 8 mm Emerge Monorail balloon across target lesion- successful. reused? No scoates 11:48 AM ACT drawn scoates 11:48 AM Time: 11:33LOC: 4 = Oriented but drowsy scoates 11:48 AM Balloon inflated @ 6 doreen for 7 seconds scoates 11:49 AM Balloon catheter removed intact. scoates 11:50 AM HR=78 bpm, OSBE=730/79 mmhg, SpO2=98.0 %, Resp=19 B/min, Comment=nsr 11:50 AM 3.0mm x 16mm Synergy drug-eluting stent across target lesion- successful Lot #[id number] scoates 11:52 AM At 11:52 the ACT was 274 seconds. scoates 11:52 AM Stent deployed @ 9 doreen for 9 seconds scoates 11:52 AM Stent delivery system removed intact. scoates 11:54 AM HR=81 bpm, YOXC=477/89 mmhg, MuR1=536.0 %, Resp=20 B/min, EtCO2=40 mmHg, Comment=nsr 11:55 AM 3.0 mm x 12mm NC Emerge balloon across target lesion- successful. reused? No scoates 11:55 AM Balloon inflated @ 16 doreen for 10 seconds scoates 11:55 AM Balloon inflated @ 12 doreen for 6 seconds scoates 11:55 AM Balloon inflated @ 12 doreen for 12 seconds scoates 11:55 AM Balloon catheter removed intact. scoates 11:57 AM Time: 11:56 Nitroglycerin 100 mcg Intracoronary Given by Lu Whitehead MD scoates 11:59 AM Time: 11:59 Nitroglycerin 200 mcg Intracoronary Given by Lu Whitehead MD scoates 12:00 PM HR=80 bpm, QYYC=017/79 mmhg, SpO2=96.0 %, Resp=21 B/min, Comment=nsr 12:01 PM 3.0mm x 8mm Synergy drug-eluting stent across target lesion- successful Lot #[id number] scoates 12:02 PM Stent deployed @ 8 doreen for 11 seconds scoates 12:02 PM Stent balloon reinflated @ 11 doreen for 7 seconds scoates 12:03 PM Time: 11:48LOC: 4 = Oriented but drowsy scoates 12:03 PM Time: 11:48 Patient comfortable and pain free: Yes scoates 12:03 PM Stent balloon reinflated @ 11 doreen for 7 seconds scoates 12:04 PM Stent delivery system removed intact. scoates 12:04 PM Guide catheter removed intact. scoates 12:04 PM Guide wire removed intact. scoates 12:04 PM HR=79 bpm, DTNK=038/78 mmhg, SpO2=99.0 %, Resp=14 B/min, Comment=nsr 12:05 PM Recorded Pressure: Ao, HR=80, Condition=Condition 1 (Aorta) Ao 142/77/101 12:06 PM Time: 12:06 Fentanyl 50 mcg Intravenous Given by Reji Shaffer RN scoateverona 12:07 PM Bolus angiogram of right Femoral complete: 4 ml/sec for a total of 7 mls scoates 12:09 PM Time: 12:09 Versed 1 mg Intravenous Given by Reji Shaffer RN scoates 12:09 PM Time: 12:09 Brilinta 180 mg Orally Given by Reji Shaffer RN scoates 12:10 PM Time: 12:09 10 ml Lidocaine 2% to right groin Subcutaneous Given by Leonides Whitehead MD scoates 12:11 PM HR=77 bpm, AMQN=513/97 mmhg, XkV8=975.0 %, Resp=13 B/min 12:12 PM Procedure completed at 12:12 07/17/2018 scoates 12:12 PM Did you address NICCI flow and Dominance? Yes scoates 12:13 PM Sign out completed: Radiation Dose 1803 mGy, 24856 cGy/cm2 Fluoro Time: 9.2 Isovue 370 - 200ml contrast 127 ml given by Leonides Whitehead MD. Complications: NoneCardiac Rehab Consult needed: YesConfirmed administered medications: Yes scoates 12:13 PM Isovue 370 - 200ml,1 Bottle(s) used. scoates 12:13 PM Arterial sheath pulled, Angio-seal closure device used and was Successful [id number] S/N. scoates 12:14 PM Estimated Blood Loss: less than 20cc scoates 12:14 PM Post ECG NSR scoates 12:14 PM Post Blood Pressure 124/78 scoates 12:15 PM 12:15 Post Pulses Bilateral DP & PT 2+ scoates 12:15 PM Information taught Cardiac Cath, PCI, and Angioseal scoates 12:15 PM Education needs Procedure, Plan of Care, and Responsibilities of Patient in Care scoates 12:15 PM Learning barriers :None scoates 12:15 PM Education Methods Verbal scoates 12:15 PM Education evaluation Able to repeat information scoates 12:15 PM Site status No bleeding/hematoma - Rt Groin as reported by Mina Swift RT (R) at 12:15 scoates 12:15 PM Opsite applied scoates 12:15 PM Plavix, Effient or Brilinta given Yes scoates 12:15 PM Delay to floor No scoates 12:16 PM Family placed in family not here at this time. scoates 12:16 PM Complications: None scoates 12:17 PM Report given to Karen JACQUES Pt taken to 2NE Room #33. 12:16 scoates 12:18 PM Time: 12:03 Patient comfortable and pain free: Yes scoates 12:18 PM Time: 12:03LOC: 4 = Oriented but drowsy scoates 12:19 PM Patient out of room: 12:19 scoates 12:25 PM Complications: None scoates 12:25 PM Lesion found in Distal RCA. Pre Stenosis: 65 Pre NICCI Flow: scoates 12:25 PM Lesion found in 1st Diagonal. Pre Stenosis: 65 Pre NICCI Flow: scoates Complications Complication None None None Hemodynamics Pressures Site Systolic/A Wave Diastolic/V Wave Mean AO 135 83 105 AO 140 83 104 AO 106 64 82 LV 123 31 38 LV 122 28 34 AO 122 82 101 AO 122 76 95 AO 114 83 98 AO 119 87 103 RV 120 73 78 AO 142 77 101 Post Procedure Information Blood Pressure: 124/78 mmHg Rhythm: NSR Post procedural instructions were given Closure Device Time Device Success/Fail 07/17/2018 12:15:00 PM Angio-Seal VIP Successful Site Checks Time Location Status Staff Sheath In? Note 12:15 PM Rt Groin No bleeding/hematoma Mina Swift RT (R) Pulses Time Site Pre-Procedure Post-Procedure Note 07/17/2018 10:16:00 AM Bilateral DP & PT 2+ 07/17/2018 10:16:00 AM Bilateral radial 2+ 12:15:00 PM Bilateral DP & PT 2+ Updated by Reji Shaffer RN on 07/17/2018 12:35:18 PM electronically signed on 07/17/2018 12:35:44 PM with status of Final
--- NOTE | 2018-07-17 14:26 | Internal Med Progress Note ---
Hospitalist Progress Note - Encounter Date of Encounter: 07/17/18 Time of Encounter: 09:10 - Subjective Interval History: Patient seen earlier today. She was awaiting left heart catheterization. She denies any chest pain. No palpitations. No shortness of breath. - Exam Vitals: Temp Pulse Resp BP Pulse Ox 97.7 F 82 16 145/88 97 07/17/18 07:32 07/17/18 14:00 07/17/18 07:32 07/17/18 14:00 07/17/18 07:32 Exam: General: Patient is alert, no acute distress, oriented x 3 Respiratory: Good respiratory effort. Normal breath sounds. No wheezing or crackles. Cardiovascular: Regular rate and rhythm. s1 and s2 normal No clicks, rubs, gallops, or murmurs. No pedal edema Abdomen: Abdomen is soft, nontender. Bowel sounds are present Neuro: Alert oriented x 3 normal cranial nerves, no focal deficits - Assessment and Plan (1) NSTEMI (non-ST elevated myocardial infarction) Current Visit: Yes Status: Acute Assessment and Plan: Was being treated with IV heparin. Left heart catheterization done today. Patient was found to have severe 2 vessel coronary artery disease. She was underwent PCI to mid RCA lesion. She has 100% mid LAD lesion for which cardiology recommendations PCI later if she is still symptomatic. Continue dual antiplatelet therapy. High risk for complications. (2) Hypertension Current Visit: Yes Status: Chronic Assessment and Plan: Continue carvedilol and Zestril. (3) Cardiomyopathy Current Visit: Yes Status: Chronic Assessment and Plan: Rash came make cardiomyopathy. Not in acute exacerbation. Continue Lasix, Aldactone. (4) CAD (coronary artery disease) Current Visit: Yes Status: Chronic Assessment and Plan: On aspirin, carvedilol, lisinopril, Crestor, started on Enbrel intact. On Aggrastat at this time. (5) Tobacco abuse Current Visit: Yes Status: Chronic Assessment and Plan: Offered nicotine patch but patient does not want it at this time - Time Spent with Patient Total time spent is greater than 50% in coordination of care (as documented) at patient's floor/unit and/or counseling patient: Internal Medicine: Result - Labs CBC & Chem 7: 07/16/18 10:37 07/17/18 01:08 Labs: BMP 07/17/18 01:08 Sodium 135 L Potassium 3.4 L Chloride 109 H Carbon Dioxide 23 BUN 14 Creatinine 0.82 Glucose 120 H Calcium 8.2 L Cardiac Enzymes 07/16/18 07/16/18 Range/Units 15:27 21:57 Troponin I 0.29 H* 0.24 H* (< 0.04) ng/mL - ABG Interpretation ABG results: PT/INR, D-dimer PT 11.3 Seconds (9.4-12.1) 07/16/18 10:37 - Impressions Impressions Echocardiogram 07/16/18 14:53 Impressions: LVEF 35-40%. Global hypokinesis with regional variation seen in the apical segments with an aneurysmal apex. Moderately dilated left ventricle. Mild left ventricular diastolic dysfunction. There is no LV thrombus. Definity echo contrast was used. Normal right ventricular structure and function. Mild mitral regurgitation. Mild tricuspid regurgitation. No pulmonary hypertension based on TR signal obtained. Left Ventricular Wall Motion: Rest Echo Findings The apex, apical inferior, mid inferior, basal inferior, apical anterior, mid anterior, basal anterior, apical septal, mid inferior septal, basal inferior septal, apical lateral, mid anterior lateral, basal anterior lateral, mid anterior septal, mid inferior lateral, basal anterior septal and basal inferior lateral benjamin were hypokinetic. Findings: Study Quality * Technically adequate exam. ECG Findings * Normal sinus rhythm. Left Ventricle * LVEF 35-40%. * Moderately dilated left ventricle. * Mild left ventricular diastolic dysfunction. * There is no LV thrombus. * Definity echo contrast was used. Right Ventricle * Normal right ventricular structure and function. Left Atrium * Moderately dilated left atrium. Right Atrium * Normal right atrial size. Mitral Valve * Normal mitral valve structure. * No mitral stenosis. * Mild mitral regurgitation. Aortic Valve * No aortic regurgitation. * Aortic valve not well visualized. * No aortic stenosis. Tricuspid Valve * Tricuspid valve not well visualized. * Mild tricuspid regurgitation. Pulmonic Valve * Pulmonic valve is not well visualized. * No pulmonic stenosis. * No pulmonic regurgitation. Pulmonary Artery * Pulmonary artery not well visualized. Interatrial Septum * No evidence of PFO by color Doppler. Pericardium * There is no pericardial effusion present. IVC * The IVC is not dilated. Consult Discharge Plan - Plan Referrals: Tao Iqbal MD [Primary Care Provider] - (2) Hypertension Qualifiers: Hypertension type: essential hypertension Qualified Code(s): I10 - Essential (primary) hypertension (3) Cardiomyopathy Qualifiers: Cardiomyopathy type: ischemic Qualified Code(s): I25.5 - Ischemic cardiomyopathy (4) CAD (coronary artery disease) Qualifiers: Coronary Disease-Associated Artery/Lesion type: [place] artery [place] vs. transplanted heart: [place] heart Associated angina: angina presence unspecified Qualified Code(s): I25.10 - Atherosclerotic heart disease of [place] coronary artery without angina pectoris
[2018-07-17] MEDS: Isosorbide MONOnitrate (24 HR) 30 MG TAB.ER.24H PO SCH (16:05)
[2018-07-17] MEDS: *HR* Ticagrelor 90 MG TABLET PO SCH (20:14)
[2018-07-18 04:59] LABS: Basophils % 0.2 %; Eosinophils # 0.1 K/mcL (0.0-0.6); Eosinophils % 1.5 %; Hematocrit 35.8 % (35.3-44.9); Hemoglobin 12.2 g/dL (11.5-15.4); Immature Granulocytes % 0.2 % (0-4); Lymphocytes # 2.2 K/mcL (0.6-4.6); Lymphocytes % 26.2 %; Mean Corpuscular HGB Conc 34.1 g/dL (31.6-35.5); Mean Corpuscular Hemoglobin 28.2 pg (28.0-33.3); Mean Corpuscular Volume 82.9 fL (83.0-100.0); Mean Platelet Volume 10.9 fL (9.4-12.4); Monocytes # 0.4 K/mcL (0.0-1.3); Neutrophils # 5.7 K/mcL (1.6-8.9); Platelet Count 266 K/mcL (140-400); Red Blood Count 4.32 M/mcL (3.82-4.97); Red Cell Distribution Width 13.4 % (11.5-14.5); Segmented Neutrophils % 66.9 %
[2018-07-18 05:18] LABS: BUN/Creatinine Ratio 17 (6-26); Blood Urea Nitrogen 11 mg/dL (6-20); Calcium 8.5 mg/dL (8.6-10.3); Carbon Dioxide 27 mEq/L (23-29); Chloride 104 mEq/L (98-107); Glucose 121 mg/dL (70-105); Osmolality,Calculated 283 (280-300); Potassium 3.4 mEq/L (3.5-5.1); Sodium 136 mEq/L (136-145); eGFR For Non-African Americans > 60 (> 60)
--- NOTE | 2018-07-18 06:46 | Cardiology Progress Note ---
Date of Encounter: 07/18/18 Time of Encounter: 06:45 Assessment and Plan (1) NSTEMI (non-ST elevated myocardial infarction) Current Visit: Yes Status: Acute IPer Cardiology: Peak troponin 0.29. Status post left heart catheterization: Impressions: FFR Measurement: 0.77 MID RCAPatient had successful PTCA/Drug-Eluting Stent placement in the mid RCA. There is severe two vessel coronary artery disease. LAD mid with 100% CMRI with almost transmural scar in septal and anterior apical benjamin Consider PCI of the LAD if symptomatic after PCI of the RCA Lesion Findings/Interventions * Left Main Coronary Artery The LMCA is angiographically free of disease. * Left Anterior Descending There is a 95 % instent stenosis in the MID LAD, proximal to the 100% occlusion. There is a 100% instent stenosis in the Mid LAD. The lesion has a NICCI flow of 0. There is a 65% stenosis in the proximal 1st Diagonal. * Circumflex The Circumflex is angiographically free of disease. The 1st Marginal is angiographically free of disease. * Right Coronary Artery There is a 24 mm long, 70% stenosis in the Mid RCA. The lesion has a NICCI flow of 3. An intervention was performed on the Mid RCA with a final stenosis of 0%. There were no lesion complications. The final NICCI flow was 3. There is a 65% stenosis in the Distal RCA. Known EF 39% on cardiac MRI 05/2018. 35% on TTE 02/2018 moderate global dysfunction. Current echo shows EF 35-40%. Chest pain-free. On aspirin, statin, beta arielle, Aldactone, long-acting nitrate, KEY inhibitor, and Brilinta-- assistants car provided. Postprocedure care and education provided. Cardiology will sign off, reconsult as needed, follow-up arranged, anticipate discharge home today. All questions answered. Patient and family verbalized understanding and agree to plan. We will closely monitor LAD lesions. Discussion w patient/family: The assessment and plan as outlined above was discussed with the patient and/or family members who expressed understanding and agreement. All questions were answered. Thank you for involving us in the care of your patient. Please call with any questions. Subjective Principal diagnosis: NSTEMI, CAD Interval history: Denies any concerns overnight. Chest pain-free. Denies any concerns from her right groin site. Objective Vital Signs, Last 4 Hours Temp Pulse Resp BP Pulse Ox 07/18/18 04:00 98.2 F 79 15 120/82 98 General: Conversant, No Apparent Distress HEENT: Atraumatic, Normocephaly, Mucus Membranes Moist Neck: No JVD, Normal carotid pulses Cardiac: Reg Rate and Rhythm, Normal S1 and S2, No Murmur Lungs: Normal Breath Sounds, No Wheeze, Rales, Rhonchi Neuro: Alert and responsive, No focal deficits noted Abdomen: Soft, Non-Tender Skin: No rashes noted on visualized skin, Other (Right groin site dry and intact , very mild ecchymosis, no bleeding, no hematoma, right PT and DP pulses 2+ palpable) Musculoskeletal: No Chest Wall Tenderness Extremities: No Clubbing, No Cyanosis, No Edema, Normal Pulses Results 07/18/18 04:09 07/18/18 04:09 Lab Results Laboratory Tests 07/16/18 07/16/18 07/17/18 15:27 21:57 01:08 Hgb Hct Creatinine Est GFR (Non-Af Amer) Troponin I 0.29 H* 0.24 H* LDL Cholesterol, Calc 14 07/18/18 07/18/18 04:09 04:09 Hgb 12.2 D Hct 35.8 Creatinine 0.66 Est GFR (Non-Af Amer) > 60 Troponin I LDL Cholesterol, Calc Impressions Echocardiogram 07/16/18 14:53 Impressions: LVEF 35-40%. Global hypokinesis with regional variation seen in the apical segments with an aneurysmal apex. Moderately dilated left ventricle. Mild left ventricular diastolic dysfunction. There is no LV thrombus. Definity echo contrast was used. Normal right ventricular structure and function. Mild mitral regurgitation. Mild tricuspid regurgitation. No pulmonary hypertension based on TR signal obtained. Left Ventricular Wall Motion: Rest Echo Findings The apex, apical inferior, mid inferior, basal inferior, apical anterior, mid anterior, basal anterior, apical septal, mid inferior septal, basal inferior septal, apical lateral, mid anterior lateral, basal anterior lateral, mid anterior septal, mid inferior lateral, basal anterior septal and basal inferior lateral benjamin were hypokinetic. Findings: Study Quality * Technically adequate exam. ECG Findings * Normal sinus rhythm. Left Ventricle * LVEF 35-40%. * Moderately dilated left ventricle. * Mild left ventricular diastolic dysfunction. * There is no LV thrombus. * Definity echo contrast was used. Right Ventricle * Normal right ventricular structure and function. Left Atrium * Moderately dilated left atrium. Right Atrium * Normal right atrial size. Mitral Valve * Normal mitral valve structure. * No mitral stenosis. * Mild mitral regurgitation. Aortic Valve * No aortic regurgitation. * Aortic valve not well visualized. * No aortic stenosis. Tricuspid Valve * Tricuspid valve not well visualized. * Mild tricuspid regurgitation. Pulmonic Valve * Pulmonic valve is not well visualized. * No pulmonic stenosis. * No pulmonic regurgitation. Pulmonary Artery * Pulmonary artery not well visualized. Interatrial Septum * No evidence of PFO by color Doppler. Pericardium * There is no pericardial effusion present. IVC * The IVC is not dilated. Active Medications Acetaminophen (Tylenol) 650 mg PO Q6HR PRN PRN Reason: Mild Pain/Fever Stop: 01/15/19 16:37 Aspirin (Aspirin Ec) 81 mg PO DAILY [facility] Stop: 01/15/19 15:01 Last Admin: 07/17/18 08:20 Dose: 81 mg Carvedilol (Coreg) 12.5 mg PO BIDWM [facility] PRN Reason: Protocol Stop: 01/15/19 15:01 Last Admin: 07/17/18 16:52 Dose: 12.5 mg Cyanocobalamin (Vitamin B12) 1,000 mcg PO DAILY [facility] Stop: 01/16/19 09:01 Last Admin: 07/17/18 08:21 Dose: 1,000 mcg Furosemide (Lasix) 40 mg PO DAILY [facility] Stop: 01/15/19 15:01 Last Admin: 07/17/18 16:05 Dose: 40 mg Isosorbide Mononitrate (Imdur) 30 mg PO DAILY [facility] Stop: 01/16/19 14:46 Last Admin: 07/17/18 16:05 Dose: 30 mg Lisinopril (Zestril) 10 mg PO DAILY [facility] PRN Reason: Protocol Stop: 01/15/19 15:01 Last Admin: 07/17/18 08:20 Dose: 10 mg Naloxone HCl (Narcan) 0.4 mg IVP Q2MIN PRN PRN Reason: SEE COMMENTS Stop: 01/15/19 16:37 Nicotine (Nicoderm) 21 mg TD DAILY [facility] PRN Reason: Protocol Stop: 01/16/19 09:01 Last Admin: 07/17/18 08:21 Dose: Not Given Nitroglycerin (Nitroglycerin) 0.4 mg SL Q5MIN PRN PRN Reason: CHEST PAIN Stop: 01/15/19 14:52 Omeprazole (Prilosec) 20 mg PO 0630 [facility] Stop: 01/16/19 06:31 Last Admin: 07/18/18 06:28 Dose: 20 mg Rosuvastatin Calcium (Crestor) 40 mg PO HS [facility] Stop: 01/15/19 21:01 Last Admin: 07/17/18 20:14 Dose: 40 mg Spironolactone (Aldactone) 12.5 mg PO DAILY [facility] Stop: 01/15/19 14:53 Last Admin: 07/17/18 08:20 Dose: 12.5 mg Ticagrelor (Brilinta) 90 mg PO BID [facility] Stop: 01/16/19 21:01 Last Admin: 07/17/18 20:14 Dose: 90 mg Vitamin D (Vitamin D) 1,000 unit PO DAILY [facility] Stop: 01/16/19 09:01 Last Admin: 07/17/18 08:20 Dose: 1,000 unit - Imaging and Cardiology Cardiac cath: report reviewed Consult Discharge Plan - Plan Referrals: Tao Iqbal MD [Primary Care Provider] -
[2018-07-18 07:35] VITALS: BP 129/85
--- NOTE | 2018-07-18 09:37 | Discharge Summary ---
- NOTES TO OUTPATIENT PROVIDER Notes to Outpatient Provider: Patient with history of coronary artery disease was hospitalized here with chest pain and troponins were elevated. She was diagnosed with non-ST elevation NC and was treated with IV heparin. Cardiology was consulted and patient underwent left heart catheterization. Patient was found to have mid RCA stenosis which was fixed with the drug-eluting stent. Patient also has LAD mid lesion with 100% stenosis. Recommended medical management for now and PCI if patient continues to have chest pain. She will be discharged on aspirin and Brilinta. She has been strongly advised smoking cessation. Date of Encounter: 07/18/18 Time of Encounter: 09:31 - Discharge Diagnosis (1) NSTEMI (non-ST elevated myocardial infarction) Priority: Primary Status: Acute (2) Hypertension Priority: Secondary Status: Chronic Qualifiers: Hypertension type: essential hypertension Qualified Code(s): I10 - Essential (primary) hypertension (3) Cardiomyopathy Priority: Secondary Status: Chronic Qualifiers: Cardiomyopathy type: ischemic Qualified Code(s): I25.5 - Ischemic cardiomyopathy (4) CAD (coronary artery disease) Priority: Secondary Status: Chronic Qualifiers: Coronary Disease-Associated Artery/Lesion type: [place] artery [place] vs. transplanted heart: [place] heart Associated angina: angina presence unspecified Qualified Code(s): I25.10 - Atherosclerotic heart disease of [place] coronary artery without angina pectoris (5) Tobacco abuse Priority: Secondary Status: Chronic Hospital course: Ms. Reno is a 47 year old female Patient with history of coronary artery disease was hospitalized here with chest pain and troponins were elevated. She was diagnosed with non-ST elevation NC and was treated with IV heparin. Cardiology was consulted and patient underwent left heart catheterization. Patient was found to have mid RCA stenosis which was fixed with the drug- eluting stent. Patient also has LAD mid lesion with 100% stenosis. Recommended medical management for now and PCI if patient continues to have chest pain. She will be discharged on aspirin and Brilinta. She has been strongly advised smoking cessation. Discharge discussed with: patient - Time Spent with Patient Total time spent providing and/or coordinating discharge services: Greater than 30 minutes (35 min) - Discharge Medications Prescriptions: Ticagrelor [Brilinta] 90 mg PO BID #60 tablet Home Medications: Aspirin Enteric Coated [Aspirin EC] 81 mg PO DAILY 05/30/15 [History] Carvedilol [Coreg] 6.25 mg PO BID 06/09/16 [History] Rosuvastatin [Crestor] 40 mg PO HS 06/09/16 [History] Furosemide [Lasix] 40 mg PO DAILY #10 tablet 10/19/17 [Rx] Cyanocobalamin (Vitamin B-12) [Vitamin B12] 1,000 mcg PO DAILY 11/21/17 [History ] Esomeprazole Magnesium [Nexium] 20 mg PO DAILY 11/21/17 [History] Lisinopril [Zestril] 10 mg PO DAILY 11/21/17 [History] Nitroglycerin [Nitrostat] 0.4 mg SL Q5-6MIN PRN 11/21/17 [History] Cholecalciferol (D-3) [Vitamin D] 5,000 unit PO DAILY 07/16/18 [History] Spironolactone [Aldactone] 25 mg PO DAILY 07/16/18 [History] Ticagrelor [Brilinta] 90 mg PO BID #60 tablet 07/18/18 [Rx] Allergies/Adverse Reactions: 3 Allergy/AdvReac Type Severity Reaction Status Date / Time No Known Allergies Allergy Verified 07/16/18 14:53 Date of admission: 07/17/18 16:38 Primary care physician: Tao Iqbal MD Consults: 07/16/18 10:31 Consult to Cardiology [CONS] Stat Comment: Consulting Provider: Cardiology Hermelinda Reason for Consult: Elevated troponin Call Completed: Yes 07/17/18 12:20 Consult to Cardiac Rehabilitation-Phase1 [CONS] Routine Comment: Reason for Consult: AMI Call Completed: Yes Consult to Nurse Navigator [CONS] Routine Comment: Discharging clinician: Miryam Rehman Anticipated date of discharge: 07/18/18 - Constitutional Vitals: Temp Pulse Resp BP Pulse Ox 97.5 F L 76 20 129/85 98 07/18/18 07:33 07/18/18 07:33 07/18/18 07:33 07/18/18 07:33 07/18/18 07:33 General appearance: Present: cooperative, A&O X 3, no acute distress, answers questions appropriately Exam: . - Respiratory Respiratory exam: Present: CTAB. Absent: accessory muscle use, rales, rhonchi, wheezes - Cardiovascular Cardiovascular exam: Present: RRR, +S1, +S2. Absent: diastolic murmur, gallop, rubs, systolic murmur - GI/Abdominal GI/Abdominal exam: Present: normal bowel sounds, soft, no peritoneal signs. Absent: distended, tenderness - Extremities Exam Extremities exam: Present: warm, radial pulses palpable and symmetrical. Absent : calf tenderness, cyanotic, pedal edema - Patient Status Disposition: Home, Self-Care Condition: Good Functional capacity at discharge: independent ambulation Overall status at discharge: patient is progressing back to baseline - Discharge Instructions Instructions: Myocardial Infarction (DC), Coronary Intravascular Stent Placement (DC), Chronic Hypertension (DC) Follow Up With: Tao Iqbal MD [Primary Care Provider] - (in 1-2 weeks) Tim Webster DO [Partnered Physician] - (in 1-2 weeks) Additional Instructions: RISK FACTORS: STOP SMOKING: If you smoke, STOP. Smoking or tobacco use significantly increases your risk of heart disease because nicotine causes the arteries to narrow or constrict. It also causes fats to stick to the artery. Your chances of having a heart attack are greatly increased if you continue to smoke. For more information, call the education line for smoking cessation 3-578-OTDDIMN EAT A LOW FAT/CHOLESTEROL/SODIUM DIET: This diet may help reduce your chances of having a heart attack. LIFTING: Avoid lifting anything more than 10 pounds for 5-7 days Prior to straining, laughing, sneezing and/or coughing, apply manual pressure directly over insertion site. ACTIVITY: You may walk or climb stairs as tolerated You can resume sexual activity as tolerated In general, you are encouraged to engage in a minimum of 30 minutes or more of moderate intensity physical activity, such as brisk walking, daily or at least 3 -4 times weekly BATHING Do not submerge the site into water (bath tub, hot tub, swimming pool) for 1 week. This can be a source for infection into the blood stream. You may shower after 24 hours SITE CARE: After 24 hours, you may remove the dressing and leave the site open to air. Keep the site clean and dry. Clean gently and pat dry. You can expect bruising and tenderness that gradually resolve within a week or two. 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 Resume driving as instructed per physician- 3 days after procedure Keep all scheduled follow up appointments Resume medications as instructed IMPORTANT: If prescribed a Platelet Aggregation Inhibitor such as, Plavix, Brilinta or Effient: Duration of therapy is minimum one year These medications are often used in combination with Aspirin in prevention of future heart attacks Never discontinue unless consult with your Director [place] [employer] STROKE (CVA) Risk factors for a stroke are: Age, cigarette smoking, diabetes, excessive alcohol consumption, family history, high blood pressure, overweight, physical inactivity, prior stroke, heart attack, diagnosis of carotid artery stenosis or other artery disease. Warning signs: Sudden numbness or weakness of the face, arm or leg; especially on one side of the body, sudden confusion, trouble speaking or understanding, sudden trouble seeing in one or both eyes, sudden trouble walking, dizziness, loss of balance or coordination, sudden severe headache with no cause. Call 911 or go to the Emergency Room. CONGESTIVE HEART FAILURE: If you have been diagnosed with Congestive Heart Failure (CHF) and your symptoms return, make an appointment with your physician Weigh yourself daily. Notify your physician if you have a weight gain of two or more pounds in one day or five or more pounds in one week. If you experience any difficulty breathing, please call 911 BLEEDING: Although the risk of bleeding is minimal, it can happen. If you have any bleeding from the site, apply firm pressure above the puncture site for 10-15 minutes. If the bleeding does not stop, continue manual pressure and call 911 Contact your physician if: You develop a fever greater than 101 degrees Fahrenheit Your site becomes reddened or has any drainage You have an increase in pain or burning at the site or if a large knot forms at the site. If you experience chest pain, shortness of breath, dizziness, or extreme tiredness, stop the activity and rest. Please notify your physicians office if you experience any of these symptoms and they are not relieved by rest please call 911! - Diet and Activity Activity: as per the cardiac rehab, increase activity as tolerated Diet: low fat, low cholesterol, low salt diet
[2018-07-18] MEDS: Nicotine 21 MG PATCH.TD24 TD SCH (09:57)
[2018-07-18] MEDS: *HR* Ticagrelor 90 MG TABLET PO SCH (10:07)
[2018-07-18] MEDS: Cholecalciferol (D-3) 1,000 UNIT TABLET PO SCH (10:07)
[2018-07-18] MEDS: Cyanocobalamin (B-12) 1,000 MCG TABLET PO SCH (10:07)
[2018-07-18] MEDS: Spironolactone 25 MG TABLET PO SCH (10:07)
[2018-07-18] MEDS: Aspirin Enteric Coated 81 MG Tablet PO SCH (10:07)
[2018-07-18] MEDS: Furosemide 40 MG TABLET PO SCH (10:07)
[2018-07-18] MEDS: Isosorbide MONOnitrate (24 HR) 30 MG TAB.ER.24H PO SCH (10:10)
[2018-07-18] MEDS ORDERED: Adenosine 90 MG/30 ML MLS IV ONE (10:35)
--- NOTE | 2018-07-19 14:48 | Electrocardiograph Report ---
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
== END 2018-07-18 10:36 | disposition home or self-care (01) | DRG 247 ==
LOC: EMEROOARM 09:50 → INTOOBSV 13:23 → 2NENU 13:23 → SUATTDRO 13:23 → 2NENU 14:51
PROVIDERS: ADMIT Internal Medicine; ATTEND Internal Medicine